=== PATIENT | female | born 1955 | race Caucasian/White ===

== ENCOUNTER → 2017-08-27 | Outpatient (CLI) | payer BC | LOC: BMCIMAGING 12:38 | PROVIDERS: ATTEND Internal Medicine | DX: Z12.31 Encounter for screening mammogram for malignant neoplasm of breast (principal) ==

== ENCOUNTER → 2017-09-25 | Outpatient (CLI) | payer BC | LOC: FIMAGING 12:16 | PROVIDERS: ATTEND Internal Medicine | DX: Z13.820 Encounter for screening for osteoporosis (principal); Z78.0 Asymptomatic menopausal state ==

== ENCOUNTER 2017-11-05 21:47 | Emergency (ER) | payer BC ==
[2017-11-05 21:52] VITALS: BP 155/96
[2017-11-05] MEDS ORDERED: IBUPROFEN 600 MG TAB PO ONE (22:02)
--- NOTE | 2017-11-05 22:02 | EDPHY ---
General Time Seen by Provider: 11/05/17 21:57 Narrative: CHIEF COMPLAINT: Fall, wrist and elbow pain HISTORY OF PRESENT ILLNESS: Patient presents with complaints fall earlier this evening with right elbow and wrist pain. She was cooking in the kitchen a few hours ago when she slipped after accidentally touching a hot p.m.. She has no complaints of the superficial burn she complained, but states that she fell, landing on outstretched right hand. She felt a sudden onset of pain in the right wrist and elbow. The pain in the wrist is more severe. The pain in the elbow was mild but has increased to moderate. She has no head strike or loss of consciousness. No headache, neck pain, chest pain, back pain, abdominal pain. No injury to the left arm or either of her legs. The pain is worse with any kind of palpation, movement or grasp. Some improvement rest. Radiates up the entire forearm. No numbness, tingling or weakness. No other associated complaints or modifying factors. DOMINANT EXTREMITY: Right-hand dominant ESTABLISHED ORTHOPEDIST: Dr. Del Rio REVIEW OF SYSTEMS: Ten systems reviewed and are negative unless otherwise noted in the HPI PAST MEDICAL HISTORY: Atherosclerosis, dyslipidemia PAST SURGICAL HISTORY: Orthopedic surgery, colectomy, retinal detachment correction SOCIAL HISTORY: Nonsmoker. Lives here independently with her partner. FAMILY HISTORY: Noncontributory EXAMINATION General Appearance: Alert, no distress Cardiovascular: Radial pulses are symmetric at 2+. Brisk cap refill the fingers right hand. Neurological: A&O, sensory of the radial, ulnar and median distribution intact in the right upper extremity. No wrist drop. Strength is symmetric in the interossei. Unable to test wrist strength due to pain. Skin: Warm and dry, no rash. No petechiae. No purpura. Extremities: No deformity of the right wrist. There is tenderness in the right wrist and elbow posteriorly. There is no radial head tenderness. She is able to fully straighten the elbow without pain or hesitation. Unable to test range of motion of the wrist due to pain. There is full flexion extension of the right hand fingers. Psychiatric: Mood and affect normal DIFFERENTIAL DIAGNOSES: Including but not limited to wrist sprain, strain, fracture, dislocation, subluxation, radial head fracture MDM: 10:00 p.m. Fall with acute right wrist and elbow pain. She is neurovascular intact. There is no deformity. This is a closed injury. I have ordered x-ray of the wrist and the elbow. I have ordered ibuprofen. She is in no acute distress with vital signs stable. 10:30 p.m. Plain films as read by me, without radiologist, reveals no acute findings of the wrist or radial head. Patient re-evaluated and she still has pain in the elbow with range of motion, thus I will place her in a sling. She has been placed in a thumb spica splint. We discussed keeping this in place at all times except when showering. We discussed mandatory follow-up for the possibility of a false negative x-ray today. We discuss ice, elevation anti- inflammatories. We discussed short course of pain medication. She has an established orthopedist that she will call in the morning. I have answered all of her questions, and she is comfortable this plan and discharged in stable condition. SUPERVISION: This patient was independently evaluated without direct involvement of or examination by the attending physician. ED Precautions: Worsening pain. Erythema, edema, cyanosis, pallor, paresthesia or anesthesia. - History Smoking Status: Never smoked - Objective Vital Signs: Initial Vital Signs Temperature (C) 98.1 F 11/05/17 21:51 Heart Rate 90 11/05/17 21:51 Respiratory Rate 20 11/05/17 21:51 Blood Pressure 155/96 H 11/05/17 21:51 O2 Sat (%) 97 11/05/17 21:51 O2 Delivery Mode Room Air Allergies/Adverse Reactions: corn Allergy (Verified 11/05/17 21:50) Home Medications: Medication Instructions Recorded Crestor 08/23/14 Flexeril PRN 05/03/16 Meloxicam 05/03/16 Docusate Sodium [Colace 100 MG (*)] 100 mg PO BID #28 cap 05/04/16 Hydrocodone/APAP 5/325 [[place] 1 - 2 tab PO Q6 PRN #20 tab 05/04/16 5/325 (*)] Valacyclovir HCl [Valacyclovir] 1,000 mg PO TID #21 tablet 05/04/16 predniSONE [Prednisone] 5 mg PO BID #74 tablet 05/04/16 Aspirin 11/05/17 Losartan Potassium 11/05/17 Medications Given: Discontinued Medications Ibuprofen (Motrin) 600 mg PO EDNOW ONE Stop: 11/05/17 22:03 Last Admin: 11/05/17 22:05 Dose: 600 mg Departure - Departure Disposition: Home, Routine, Self-Care Clinical Impression: Sprain of wrist, right Qualifiers: Encounter type: initial encounter Qualified Code(s): S63.501A - Unspecified sprain of right wrist, initial encounter Condition: Good Instructions: Wrist Sprain (ED), Oxycodone/Acetaminophen (By mouth) Additional Instructions: 1. Contact established orthopedist for definitive care Referrals: Tara Del Rio MD [Primary Care Provider] - As per Instructions Simeon Del Rio MD [Medical Doctor] - As per Instructions
[2017-11-05] MEDS ORDERED: OXYCODONE/APAP 5/325MG PREPACK#4 BTL TAKEHOME ONE (22:32)
== END 2017-11-05 22:47 | disposition home or self-care (01) ==
DX: S63.501A Unspecified sprain of right wrist, initial encounter (principal); Z79.82 Long term (current) use of aspirin; W01.0XXA Fall on same level from slipping, tripping and stumbling without subsequent striking against object, initial encounter; Y92.000 Kitchen of unspecified non-institutional (private) residence as the place of occurrence of the external cause; Y99.8 Other external cause status; Y93.G3 Activity, cooking and baking
CPT/HCPCS: A4565; L3807